=== PATIENT | female | born 1975 | race Caucasian/White ===

== ENCOUNTER 2016-08-07 21:32 | Emergency (ER) | payer OTHER ==
[2016-08-07] MEDS ORDERED: ALBUTEROL NEB 2.5 MG/3 ML INH STA (21:53)
[2016-08-07] MEDS ORDERED: ALBUTEROL NEB 2.5 MG/3 ML INH ONE (22:00)
[2016-08-07] MEDS ORDERED: ALBUTEROL 8 GM INHALER INH STA (22:52)
[2016-08-07] MEDS ORDERED: guaiFENesin/CODEINE 5 ML UDC ONE (22:55)
[2016-08-07] MEDS ORDERED: ALBUTEROL 8 GM INHALER INH ONE (22:56)
[2016-08-07] MEDS ORDERED: guaiFENesin/DEXTROMETHORPHAN 10 ML UDC PO SCH (23:00)
[2016-08-07] MEDS ORDERED: guaiFENesin/DEXTROMETHORPHAN 10 ML UDC ONE (23:01)
== END 2016-08-07 23:12 | disposition home or self-care (01) ==
DX: J40 Bronchitis, not specified as acute or chronic (principal); I10 Essential (primary) hypertension
CPT/HCPCS: 71020; 94640; 99283; A9270; J7613